=== PATIENT | male | born 1960 | race Caucasian/White ===

== ENCOUNTER 2017-04-07 20:33 | Inpatient (IN) | payer BC ==
[2017-04-07] MEDS ORDERED: NS 0.9% 1000 ML* 1,000 ML IV ONE (21:00)
[2017-04-07] MEDS ORDERED: Morphine INJ* 4 MG/ML 1 ML CARPUJECT IV ONE (21:00)
[2017-04-07 21:31] LABS: Hematocrit 41 % (42-52); Hemoglobin 13.6 g/dl (14.0-18.0); Mean Corpuscular HGB Conc 34 g/dl (31-36); Mean Corpuscular Hemoglobin 30 pg (27-31); Mean Corpuscular Volume 90 fL (80-94); Mean Platelet Volume 8 um3 (7.4-10.4); Red Blood Count 4.51 10^6/ul (4.0-5.4); Red Cell Distribution Width 15 % (10.5-15); White Blood Count 15.3 10^3/ul (3.5-10.8)
[2017-04-07 21:34] LABS: Add Diff/Slide Review? Slide Review Added; Comments Flag Yes
[2017-04-07] MEDS ORDERED: Ondansetron INJ* 2 MG/ML VIAL IV ONE (21:42)
[2017-04-07 21:45] LABS: Albumin 3.6 g/dL (3.2-5.2); BUN/Creatinine Ratio 11.4 (8-20); C Reactive Protein 324.19 mg/L (< 5.00); Calcium 8.8 mg/dL (8.6-10.3); EGFR Non-African American 73.1 (>60); Globulin 3.3 g/dL (2-4); Magnesium 2.2 mg/dL (1.9-2.7); Potassium 4.1 mmol/L (3.5-5.0); Total Bilirubin 1.2 mg/dL (0.2-1.0); Total Protein 6.9 g/dL (6.4-8.9)
[2017-04-07 21:47] LABS: Troponin I 0.03 ng/mL (<0.04)
[2017-04-07] MEDS ORDERED: Metoclopramide IV* 5 MG/ML 2 ML VIAL IV ONE (22:55)
[2017-04-07] MEDS ORDERED: Metoclopramide IV* 5 MG/ML 2 ML VIAL ONE (22:58)
[2017-04-07] MEDS ORDERED: Iohexol 300* (CONTRAST) 10 ML SDV IV ONE (23:03)
[2017-04-08] MEDS ORDERED: Morphine INJ* 4 MG/ML 1 ML CARPUJECT IV ONE (02:06)
[2017-04-08] MEDS ORDERED: Morphine INJ* 4 MG/ML 1 ML CARPUJECT ONE (02:07)
--- NOTE | 2017-04-08 03:05 | ED ---
Bogdan Winston Benjamin, scribed for Jonas Romero MD on 04/07/17 at 2103 . Abdominal Pain/Male - HPI Summary HPI Summary[facility] 56[facility]. Pt states his pain is constant. Pt vomited once at [facility]. No BM and unable to pass gas since last Friday. Pt is a smoker and a daily alcohol drinker. Hx of umbilical hernia, and sleep apnea. Denies CAD or COPD. Hx of gall bladder dz, but gall bladder still intact. - History of Current Complaint Chief Complaint: EDAbdPain Stated Complaint: ABD PAIN Hx Obtained From: Patient, Family/Cod Clerk - Onset/Duration: Gradual Onset, Lasting Days - since last Friday, Still Present Timing: Constant Severity Initially: Mild Severity Currently: Mild Pain Intensity: 5 Pain Scale Used: 0-10 Numeric Location: Diffuse Radiates: No Aggravating Factor(s): Nothing Alleviating Factor(s): Nothing Associated Signs And Symptoms: Positive: Nausea, Vomiting - x1, Other - unable to pass gas. Negative: Diarrhea - Allergies/Home Medications Allergies/Adverse Reactions: Allergies Allergy/AdvReac Type Severity Reaction Status Date / Time No Known Allergies Allergy Verified 04/07/17 20:38 Home Medications: Home Medications Lisinopril TAB* [Prinivil TAB*] 20 mg PO DAILY 04/07/17 [History Confirmed 04/07] Metformin HCl [Glucophage] 250 mg PO QAM 04/07/17 [History Confirmed 04/07/17] Naproxen [Naproxen 500 mg] 500 mg PO Q8H PRN 04/07/17 [History Confirmed ] [place]-3 Fatty Acids [Fish Oil] 1,200 mg PO BID 04/07/17 [History Confirmed 04/07] Omeprazole CAP* [Prilosec CAP* 20 MG] 20 mg PO BEDTIME 04/07/17 [History Confirmed 04/07/17] Tofacitinib Citrate [Xeljanz] 5 mg PO BID 04/07/17 [History Confirmed 04/07/17] predniSONE TAB* [Deltasone TAB*] 10 mg PO QAM 04/07/17 [History Confirmed ] PMH/Surg Hx/FS Hx/Imm Hx Infectious Disease History: No Infectious Disease History: Denies: Traveled Outside the [place] in Last 30 Days - Family History Known Family History: Positive: Hypertension Negative: Cardiac Disease - Social History Occupation: Employed Full-time Lives: With Family Alcohol Use: Daily Hx Substance Use: No Substance Use Type: Reports: None Smoking Status (MU): Light Every Day Tobacco Smoker Review of Systems Constitutional: Negative Eyes: Negative ENT: Negative Cardiovascular: Negative Respiratory: Negative Positive: Abdominal Pain, Vomiting, Nausea. Negative: Diarrhea Genitourinary: Negative Positive: no symptoms reported Musculoskeletal: Negative Skin: Negative Neurological: Negative Psychological: Normal All Other Systems Reviewed And Are Negative: Yes Physical Exam - Summary Physical Exam Summary: Appearance: Well-appearing, Well-nourished. somnolent but arousal and able to answer Skin: Warm Eyes: Normal ENT: Normal Neck: Supple, nontender Respiratory: Clear to auscultation Cardiovascular: Normal Abdomen: small da-umbilical hernia, soft and reducible, non tender. Mild Tender to Palpation in bilateral LQ. Diminished Bowel sounds. Musculoskeletal: Normal, Strength/ROM Intact. Distal pulses intact bilaterally. Neurological: Normal, A&Ox3 Psychiatric: Normal Triage Information Reviewed: Yes Vital Signs On Initial Exam: Initial Vitals Temp Pulse Resp BP Pulse Ox 94.6 F 111 24 121/86 94 04/07/17 20:36 04/07/17 20:36 04/07/17 20:36 04/07/17 20:36 04/07/17 20:36 Vital Signs Reviewed: Yes Diagnostics - Vital Signs Vital Signs Temp Pulse Resp BP Pulse Ox 04/07/17 20:54 100.3 F 04/07/17 20:36 94.6 F 111 24 121/86 94 - Laboratory Lab Results: Lab Results 04/07/17 04/07/17 04/07/17 Range/Units 21:19 21:19 21:19 WBC 15.3 H (3.5-10.8) 10^3/ul RBC 4.51 (4.0-5.4) 10^6/ul Hgb 13.6 L (14.0-18.0) g/dl Hct 41 L (42-52) % MCV 90 (80-94) fL MCH 30 (27-31) pg MCHC 34 (31-36) g/dl RDW 15 (10.5-15) % Plt Count 253 (150-450) 10^3/ul MPV 8 (7.4-10.4) um3 Neut % (Auto) 81.9 (38-83) % Lymph % (Auto) 5.0 L (25-47) % [place] % (Auto) 11.4 H (1-9) % Eos % (Auto) 1.1 (0-6) % Baso % (Auto) 0.6 (0-2) % Absolute Neuts (auto) 12.5 H (1.5-7.7) 10^3/ul Absolute Lymphs (auto) 0.8 L (1.0-4.8) 10^3/ul Absolute Monos (auto) 1.7 H (0-0.8) 10^3/ul Absolute Eos (auto) 0.2 (0-0.6) 10^3/ul Absolute Basos (auto) 0.1 (0-0.2) 10^3/ul Absolute Nucleated RBC 0.01 10^3/ul Nucleated RBC % 0 INR (Anticoag Therapy) 1.00 (0.77-1.02) APTT 24.8 L (26.0-36.3) seconds Sodium 133 (133-145) mmol/L Potassium 4.1 (3.5-5.0) mmol/L Chloride 99 L (101-111) mmol/L Carbon Dioxide 27 (22-32) mmol/L Anion Gap 7 (2-11) mmol/L BUN 12 (6-24) mg/dL Creatinine 1.05 (0.67-1.17) mg/dL Est GFR ( Amer) 94.0 (>60) Est GFR (Non-Af Amer) 73.1 (>60) BUN/Creatinine Ratio 11.4 (8-20) Glucose 137 H (70-100) mg/dL Lactic Acid (0.5-2.0) mmol/L Calcium 8.8 (8.6-10.3) mg/dL Magnesium 2.2 (1.9-2.7) mg/dL Total Bilirubin 1.20 H (0.2-1.0) mg/dL AST 16 (13-39) U/L ALT 26 (7-52) U/L Alkaline Phosphatase 63 (34-104) U/L Troponin I 0.03 (<0.04) ng/mL C-Reactive Protein 324.19 H (< 5.00) mg/L Total Protein 6.9 (6.4-8.9) g/dL Albumin 3.6 (3.2-5.2) g/dL Globulin 3.3 (2-4) g/dL Albumin/Globulin Ratio 1.1 (1-3) Lipase 18 (11.0-82.0) U/L 04/07/17 Range/Units 21:19 WBC (3.5-10.8) 10^3/ul RBC (4.0-5.4) 10^6/ul Hgb (14.0-18.0) g/dl Hct (42-52) % MCV (80-94) fL MCH (27-31) pg MCHC (31-36) g/dl RDW (10.5-15) % Plt Count (150-450) 10^3/ul MPV (7.4-10.4) um3 Neut % (Auto) (38-83) % Lymph % (Auto) (25-47) % [place] % (Auto) (1-9) % Eos % (Auto) (0-6) % Baso % (Auto) (0-2) % Absolute Neuts (auto) (1.5-7.7) 10^3/ul Absolute Lymphs (auto) (1.0-4.8) 10^3/ul Absolute Monos (auto) (0-0.8) 10^3/ul Absolute Eos (auto) (0-0.6) 10^3/ul Absolute Basos (auto) (0-0.2) 10^3/ul Absolute Nucleated RBC 10^3/ul Nucleated RBC % INR (Anticoag Therapy) (0.77-1.02) APTT (26.0-36.3) seconds Sodium (133-145) mmol/L Potassium (3.5-5.0) mmol/L Chloride (101-111) mmol/L Carbon Dioxide (22-32) mmol/L Anion Gap (2-11) mmol/L BUN (6-24) mg/dL Creatinine (0.67-1.17) mg/dL Est GFR ( Amer) (>60) Est GFR (Non-Af Amer) (>60) BUN/Creatinine Ratio (8-20) Glucose (70-100) mg/dL Lactic Acid 0.8 (0.5-2.0) mmol/L Calcium (8.6-10.3) mg/dL Magnesium (1.9-2.7) mg/dL Total Bilirubin (0.2-1.0) mg/dL AST (13-39) U/L ALT (7-52) U/L Alkaline Phosphatase (34-104) U/L Troponin I (<0.04) ng/mL C-Reactive Protein (< 5.00) mg/L Total Protein (6.4-8.9) g/dL Albumin (3.2-5.2) g/dL Globulin (2-4) g/dL Albumin/Globulin Ratio (1-3) Lipase (11.0-82.0) U/L Result Diagrams: 04/07/17 21:19 04/07/17 21:19 Lab Statement: Any lab studies that have been ordered have been reviewed, and results considered in the medical decision making process. - CT CT A/P CT Interpretation: Positive (See Comments) - suspected cholecystitis. CT Interpretation Completed By: Radiologist - ED physician has reviewed this radiology report and agrees. - EKG 2110. Cardiac Rate: NL EKG Rhythm: Sinus Rhythm - 81bpm Re-Evaluation - Re-Evaluation First Eval Change: Improved - feels slightly better after medications Abdominal Pain Fem Course/Dx - Course Course Of Treatment: Consulted Dr. Mcgrath (surgery) at 0235 hour, who wanted to reeval patietn in the AM with ultrasound when available. admitted for further eval - Diagnoses Provider Diagnoses: Biliary colic - Provider Notifications Discussed Care Of Patient With: Spencer Mcgrath Time Discussed With Above Provider: 02:58 Instructed by Provider To: Admit As Observation Discharge - Discharge Plan Condition: Improved Disposition: ADMITTED TO [facility] Referrals: Tulio Crisostomo MD,Jluis Stuart [Primary Care Provider] - The documentation as recorded by the Bogdan campbell Benjamin accurately reflects the service I personally performed and the decisions made by me, Jonas Romero MD.
[2017-04-08] MEDS ORDERED: fentaNYL* 50 MCG/ML 2 ML VIAL (100 MCG VIAL) IV SLOW PU PRN (03:33)
[2017-04-08] MEDS ORDERED: Acetaminophen TAB* 325 MG PO PRN (03:33)
[2017-04-08] MEDS ORDERED: Nicotine Inhaler* 10 MG AMP INH PRN (03:33)
[2017-04-08] MEDS ORDERED: CMCS: Melatonin (NF) 3 MG TAB PO PRN (03:33)
[2017-04-08] MEDS ORDERED: Albuterol 2.5 MG/3 ML NEB.SOL* (0.083%) INH PRN (03:33)
[2017-04-08] MEDS ORDERED: Ondansetron INJ* 2 MG/ML VIAL IV PRN (03:38)
[2017-04-08] MEDS ORDERED: NS 0.9% 1000 ML* 1,000 ML IV SCH (03:45)
[2017-04-08] MEDS ORDERED: Zosyn per Pharmacy* NOTE FOLLOW UP PRN (04:34)
[2017-04-08] MEDS ORDERED: Piperacillin/Tazobac ADVAN(*) 3.375 GM in D5W 100 ML BAG* 100 ML IVPB ONE (05:00)
[2017-04-08] MEDS ORDERED: Mouth Piece, Nicotine* 1 EACH CARTRIDGE INH ONE (05:00)
[2017-04-08 05:09] LABS: Hematocrit 40 % (42-52); Mean Corpuscular HGB Conc 33 g/dl (31-36); Mean Corpuscular Hemoglobin 30 pg (27-31); Mean Corpuscular Volume 91 fL (80-94); Mean Platelet Volume 9 um3 (7.4-10.4); Red Blood Count 4.35 10^6/ul (4.0-5.4); Red Cell Distribution Width 14 % (10.5-15)
[2017-04-08 05:10] LABS: Add Diff/Slide Review? Slide Review Added; Comments Flag Yes
[2017-04-08 05:19] LABS: EGFR African American 100.6 (>60); EGFR Non-African American 78.2 (>60)
--- NOTE | 2017-04-08 05:52 | HP ---
H&P (Free Text) History and Physical: PCP: Dasiha Antunez MD Date/Time: 04/08/2017 0330 CC: abdominal pain HPI: Mr Ayers is a 56YO male HX morbid obesity, choledocholithiasis s/p ERCP reports onset Friday of dull cramping diffuse abdominal pain associated with subjective F/C & nausea without vomiting, but no chest pain, SOB, palpitations, or other issues. His last BM was Friday described as loose, but without bloody or black aspect. He is unaware of exacerbating or alleviating factors. He reports similar pain in August of this year when he was found to have choledocholithiasis and underwent ERCP at [facility]. Today the pain became severe prompting him to present to [place] ED where his weight exceeded their CT limitation and so transfer was arranged. PMedHx rheumatoid arthritis on tofacitinib records list DM2, but he states he is NOT diabetic but on metformin 2nd chronic steroids for RA HTN cholelithiasis w/ choledocholithiasis s/p ERCP 08/[address] [facility] chronic LBP GERD umbilical hernia B inguinal hernia Ambulatory Orders Lisinopril TAB* [Prinivil TAB*] 20 mg PO DAILY 04/07/17 Metformin HCl [Glucophage] 250 mg PO QAM 04/07/17 Naproxen [Naproxen 500 mg] 500 mg PO Q8H PRN 04/07/17 [place]-3 Fatty Acids [Fish Oil] 1,200 mg PO BID 04/07/17 Omeprazole CAP* [Prilosec CAP* 20 MG] 20 mg PO BEDTIME 04/07/17 Tofacitinib Citrate [Xeljanz] 5 mg PO BID 04/07/17 predniSONE TAB* [Deltasone TAB*] 10 mg PO QAM 04/07/17 Allergies No Known Allergies Allergy (Verified 04/07/17 20:38) PSurgHx appendectomy ORIF B ankle FX ERCP 08/2016 SocHx: 1PPD cigarettes, occasional alcohol, denies recreational drugs; lives with his ; 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 [employer]; full code status FamHx: Mother: in her 60s 2nd uncertain type cancer; Father: in his 60s 2nd uncertain type cancer; sisters x2: healthy; Brother 1: in his 50s 2nd "tumor in brain"; Brother 2: healthy ROS: as above, otherwise reviewed and all were negative vitals: Vital Signs Temp 37.9 C 04/07/17 20:54 Pulse 68 04/08/17 04:00 Resp 20 04/08/17 02:12 BP 138/80 04/08/17 04:00 Pulse Ox 96 04/08/17 04:00 Intake & Output 04/07/17 04/07/17 04/08/17 11:59 23:59 11:59 Intake Total 1000 Balance 1000 Weight 176.447 kg Intake: IV Fluids 1000 Constitutional: NAD, normally developed, morbidly obese white male HEENM: atraumatic; sclera/conjunctiva: anicteric/clear; hearing: clinically mildly decreased; oropharynx: clear, mucosa moist Neck: soft tissue: non-tender; thyroid: normal Pulmonary: clear to auscultation bilaterally, good aeration, no accessory muscle use CV: RR/RR, normal S1S2, no carotid bruit, no jugular venous distention, 2+ B DP/ PT, no edema Abdominal: soft, non-distended, moderate RUQ tenderness, no rebound/guarding/ rigidity, normoactive bowel sounds, no hepatosplenomegaly or masses, no costovertebral angle tenderness Musculoskeletal: general: grossly intact, no palpable tenderness Integumental: normal appearance and texture of exposed skin Psychiatric orientation: AA&O to PPS affect: calm mood: cooperative eye contact: fair content: reliable responses: timely insight: fair Testing: Lab Results 04/07/17 04/07/17 04/07/17 Range/Units 21:19 21:19 21:19 WBC 15.3 H (3.5-10.8) 10^3/ul RBC 4.51 (4.0-5.4) 10^6/ul Hgb 13.6 L (14.0-18.0) g/dl Hct 41 L (42-52) % MCV 90 (80-94) fL MCH 30 (27-31) pg MCHC 34 (31-36) g/dl RDW 15 (10.5-15) % Plt Count 253 (150-450) 10^3/ul MPV 8 (7.4-10.4) um3 Neut % (Auto) 81.9 (38-83) % Lymph % (Auto) 5.0 L (25-47) % [place] % (Auto) 11.4 H (1-9) % Eos % (Auto) 1.1 (0-6) % Baso % (Auto) 0.6 (0-2) % Absolute Neuts (auto) 12.5 H (1.5-7.7) 10^3/ul Absolute Lymphs (auto) 0.8 L (1.0-4.8) 10^3/ul Absolute Monos (auto) 1.7 H (0-0.8) 10^3/ul Absolute Eos (auto) 0.2 (0-0.6) 10^3/ul Absolute Basos (auto) 0.1 (0-0.2) 10^3/ul Absolute Nucleated RBC 0.01 10^3/ul Nucleated RBC % 0 INR (Anticoag Therapy) 1.00 (0.77-1.02) APTT 24.8 L (26.0-36.3) seconds Sodium 133 (133-145) mmol/L Potassium 4.1 (3.5-5.0) mmol/L Chloride 99 L (101-111) mmol/L Carbon Dioxide 27 (22-32) mmol/L Anion Gap 7 (2-11) mmol/L BUN 12 (6-24) mg/dL Creatinine 1.05 (0.67-1.17) mg/dL Est GFR ( Amer) 94.0 (>60) Est GFR (Non-Af Amer) 73.1 (>60) BUN/Creatinine Ratio 11.4 (8-20) Glucose 137 H (70-100) mg/dL Lactic Acid (0.5-2.0) mmol/L Calcium 8.8 (8.6-10.3) mg/dL Magnesium 2.2 (1.9-2.7) mg/dL Total Bilirubin 1.20 H (0.2-1.0) mg/dL AST 16 (13-39) U/L ALT 26 (7-52) U/L Alkaline Phosphatase 63 (34-104) U/L Troponin I 0.03 (<0.04) ng/mL C-Reactive Protein 324.19 H (< 5.00) mg/L Total Protein 6.9 (6.4-8.9) g/dL Albumin 3.6 (3.2-5.2) g/dL Globulin 3.3 (2-4) g/dL Albumin/Globulin Ratio 1.1 (1-3) Lipase 18 (11.0-82.0) U/L 04/07/17 04/08/17 04/08/17 Range/Units 21:19 04:13 04:13 WBC (3.5-10.8) 10^3/ul RBC (4.0-5.4) 10^6/ul Hgb (14.0-18.0) g/dl Hct (42-52) % MCV (80-94) fL MCH (27-31) pg MCHC (31-36) g/dl RDW (10.5-15) % Plt Count (150-450) 10^3/ul MPV (7.4-10.4) um3 Neut % (Auto) (38-83) % Lymph % (Auto) (25-47) % [place] % (Auto) (1-9) % Eos % (Auto) (0-6) % Baso % (Auto) (0-2) % Absolute Neuts (auto) (1.5-7.7) 10^3/ul Absolute Lymphs (auto) (1.0-4.8) 10^3/ul Absolute Monos (auto) (0-0.8) 10^3/ul Absolute Eos (auto) (0-0.6) 10^3/ul Absolute Basos (auto) (0-0.2) 10^3/ul Absolute Nucleated RBC 10^3/ul Nucleated RBC % INR (Anticoag Therapy) 0.99 (0.77-1.02) APTT 25.4 L (26.0-36.3) seconds Sodium (133-145) mmol/L Potassium (3.5-5.0) mmol/L Chloride (101-111) mmol/L Carbon Dioxide (22-32) mmol/L Anion Gap (2-11) mmol/L BUN 14 (6-24) mg/dL Creatinine 0.99 (0.67-1.17) mg/dL Est GFR ( Amer) 100.6 (>60) Est GFR (Non-Af Amer) 78.2 (>60) BUN/Creatinine Ratio (8-20) Glucose (70-100) mg/dL Lactic Acid 0.8 (0.5-2.0) mmol/L Calcium (8.6-10.3) mg/dL Magnesium (1.9-2.7) mg/dL Total Bilirubin (0.2-1.0) mg/dL AST (13-39) U/L ALT (7-52) U/L Alkaline Phosphatase (34-104) U/L Troponin I (<0.04) ng/mL C-Reactive Protein (< 5.00) mg/L Total Protein (6.4-8.9) g/dL Albumin (3.2-5.2) g/dL Globulin (2-4) g/dL Albumin/Globulin Ratio (1-3) Lipase (11.0-82.0) U/L 04/08/17 Range/Units 04:13 WBC 13.0 H (3.5-10.8) 10^3/ul RBC 4.35 (4.0-5.4) 10^6/ul Hgb 13.0 L (14.0-18.0) g/dl Hct 40 L (42-52) % MCV 91 (80-94) fL MCH 30 (27-31) pg MCHC 33 (31-36) g/dl RDW 14 (10.5-15) % Plt Count 248 (150-450) 10^3/ul MPV 9 (7.4-10.4) um3 Neut % (Auto) 79.1 (38-83) % Lymph % (Auto) 7.1 L (25-47) % [place] % (Auto) 11.1 H (1-9) % Eos % (Auto) 1.6 (0-6) % Baso % (Auto) 1.1 (0-2) % Absolute Neuts (auto) 10.3 H (1.5-7.7) 10^3/ul Absolute Lymphs (auto) 0.9 L (1.0-4.8) 10^3/ul Absolute Monos (auto) 1.4 H (0-0.8) 10^3/ul Absolute Eos (auto) 0.2 (0-0.6) 10^3/ul Absolute Basos (auto) 0.1 (0-0.2) 10^3/ul Absolute Nucleated RBC 0.01 10^3/ul Nucleated RBC % 0.1 INR (Anticoag Therapy) (0.77-1.02) APTT (26.0-36.3) seconds Sodium (133-145) mmol/L Potassium (3.5-5.0) mmol/L Chloride (101-111) mmol/L Carbon Dioxide (22-32) mmol/L Anion Gap (2-11) mmol/L BUN (6-24) mg/dL Creatinine (0.67-1.17) mg/dL Est GFR ( Amer) (>60) Est GFR (Non-Af Amer) (>60) BUN/Creatinine Ratio (8-20) Glucose (70-100) mg/dL Lactic Acid (0.5-2.0) mmol/L Calcium (8.6-10.3) mg/dL Magnesium (1.9-2.7) mg/dL Total Bilirubin (0.2-1.0) mg/dL AST (13-39) U/L ALT (7-52) U/L Alkaline Phosphatase (34-104) U/L Troponin I (<0.04) ng/mL C-Reactive Protein (< 5.00) mg/L Total Protein (6.4-8.9) g/dL Albumin (3.2-5.2) g/dL Globulin (2-4) g/dL Albumin/Globulin Ratio (1-3) Lipase (11.0-82.0) U/L ECG, personally reviewed: sinus RBBB rate 93, no ischemia CT abd/pel W, personally reviewed: IMPRESSION: Suspected cholecystitis can be further evaluated with ultrasound. Large fat-containing umbilical hernia, moderate left-sided and small right-sided fat containing inguinal hernias. Impression: 56M HX rheumatoid arthritis on tofacitinib presents with acute cholecystitis DIAGNOSIS & PLAN Primary acute cholecystitis : pain control : IV piperacillin/tazobactam : hold tofacitinib & prednisone : monitor for s/s adrenal insufficiency : NPO x/ meds with sip of water : patient expresses uncertainty of willingness to undergo surgery during this hospitalization, needs further discussion : IVFs : Narayan Mcgrath MD surgery consulted by ED, will evaluate in AM : obtain ERCP records from [facility] : supportive care Secondary rheumatoid arthritis : hold tofacitinib & prednisone as above records list DM2, but he states he is NOT diabetic but on metformin 2nd chronic steroids for RA : check A1c HTN : continue lisinopril GERD : continue omeprazole umbilical hernia B inguinal hernia : no acute issues, surgery consulted as above Admission Rational: inpatient for acute cholecystitis requiring ABX & IVFs, likely surgical management DVTp: heparin SQ & SCDs Code Status: full HCP:
[2017-04-08] MEDS ORDERED: Omeprazole CAP* 20 MG PO SCH (06:00)
[2017-04-08 07:51] LABS: Hematocrit 37 % (42-52); Hemoglobin 12.4 g/dl (14.0-18.0); Mean Corpuscular HGB Conc 33 g/dl (31-36); Mean Corpuscular Hemoglobin 30 pg (27-31); Mean Corpuscular Volume 91 fL (80-94); Mean Platelet Volume 8 um3 (7.4-10.4); Red Blood Count 4.11 10^6/ul (4.0-5.4); Red Cell Distribution Width 14 % (10.5-15); White Blood Count 11.1 10^3/ul (3.5-10.8)
[2017-04-08 08:03] LABS: Albumin 3.3 g/dL (3.2-5.2); BUN/Creatinine Ratio 14.4 (8-20); Calcium 8.7 mg/dL (8.6-10.3); Direct Bilirubin 0.4 mg/dL (0.03-0.18); EGFR Non-African American 80.1 (>60); Globulin 3.1 g/dL (2-4); Indirect Bilirubin 0.7 mg/dL (0.3-1.0); Total Bilirubin 1.1 mg/dL (0.2-1.0); Total Protein 6.4 g/dL (6.4-8.9)
--- NOTE | 2017-04-08 08:06 | RAD ---
CLINICAL HISTORY: Abdominal pain COMPARISON: None TECHNIQUE: Multiple contiguous axial CT scans were obtained of the abdomen and pelvis after the administration of intravenous contrast. Coronal and sagittal multiplanar reformations are submitted for review. Oral contrast was administered. Delayed images were obtained through the abdomen and pelvis. FINDINGS: LUNG BASES: The lung bases are clear. LIVER: The liver is diffusely low in attenuation compared to the spleen. There are no focal hepatic parenchymal masses. BILE DUCTS: There is no intrahepatic or extrahepatic biliary dilatation. GALLBLADDER: There is stranding of the pericholecystic fat. There is mild enhancement of the gallbladder wall PANCREAS: The pancreas is normal, without mass or ductal dilatation. SPLEEN: Normal in size and appearance. UPPER GI TRACT: Evaluation of the gastrointestinal tract is limited by incomplete gastric distention. The upper GI tract is unremarkable. SMALL BOWEL AND MESENTERY: The small bowel is normal in contour, course, and caliber. There is no obstruction or dilatation. COLON: The colon is normal in contour, course, caliber. There is no pericolonic inflammatory change. ADRENALS: Normal bilaterally. KIDNEYS: The kidneys are normal in shape, size, contour, and axis. There is no hydronephrosis or nephrolithiasis. BLADDER: The bladder is smooth in contour. PELVIC ORGANS: The prostate gland is normal. The seminal vesicles are symmetric. AORTA: The aorta is normal. IVC: Unremarkable LYMPH NODES: There is no lymphadenopathy by size criteria. ABDOMINAL WALL: There is a large fat-containing umbilical hernia. There are bilateral fat-containing inguinal hernias. BONES AND SOFT TISSUES: Degenerative changes are noted most pronounced at L5-S1 OTHER: None IMPRESSION: 1. THERE IS PERICHOLECYSTIC INFLAMMATORY CHANGE SUGGESTIVE OF ACUTE CHOLECYSTITIS IN THE CORRECT CLINICAL SETTING. 2. LARGE FAT-CONTAINING UMBILICAL HERNIA WITH BILATERAL FAT-CONTAINING INGUINAL HERNIAS. 3. FATTY INFILTRATION OF THE LIVER.
[2017-04-08] MEDS ORDERED: Piperacillin/Tazobac ADVAN(*) 3.375 GM in D5W 100 ML BAG* 100 ML IVPB SCH (09:00)
--- NOTE | 2017-04-08 09:36 | RAD ---
INDICATION: ] Right upper quadrant pain COMPARISON: CT April 07, 2017 TECHNIQUE: Longitudinal and transverse scans of the right upper quadrant were obtained. Doppler interrogation of the hepatic and portal venous system was performed. The examination is limited due to body habitus. FINDINGS: Liver: There is hepatomegaly with hepatic steatosis. There are no masses . The liver measures 21.2 cm in cephalocaudal dimension. Vessels: There is normal hepatic and portal venous flow. Bile ducts: There is no evidence of intrahepatic or extrahepatic ductal dilatation. The common duct measures 0.4 cm. Gallbladder: The gallbladder wall appears thickened with a small amount of pericholecystic fluid. There are no definite gallstones but there are significant limitations on the ultrasound due to patient size. The CT shows gallbladder inflammation. Pancreas: The visualized pancreas appears normal Right kidney: The right kidney is normal in size and echogenicity. There are no masses or calculi. There is no evidence of hydronephrosis. The right kidney measures 11.5 x 5.3 x 5.7 cm. IVC and aorta: The aorta and superior vena cava appear normal. Fluid: There is no ascites. Other: None. IMPRESSION: LIMITED STUDY DUE TO PATIENT SIZE. SUSPECTED GALLBLADDER INFLAMMATION. HEPATOMEGALY WITH HEPATIC STEATOSIS.
[2017-04-08] MEDS: Docusate CAP* 100 MG PO SCH ×2 (09:56→20:23)
[2017-04-08] MEDS: Lisinopril TAB* 10 MG PO SCH (09:56)
[2017-04-08] MEDS: Hydrocortisone INJ* 100 MG VIAL IV SCH ×2 (09:57→17:39)
--- NOTE | 2017-04-08 11:19 | CONS ---
CC: [facility]; Dr. Jluis Antunez Jr. * SURGICAL CONSULTATION REPORT: DATE OF CONSULT: 04/08/17. HISTORY OF PRESENT ILLNESS: I was contacted by the emergency room physician in the overnight regarding Mr. Ayers a 56-year-old gentleman who presented to [place] emergency room and then was transferred to [facility] Emergency Room with complaints of diffuse abdominal pain. Plan was for a CT scanning and this was not available to Mr. Ayers at [facility] due to his weight of 389 pounds. He was noted on CT scan to have possibility of inflammation around the gallbladder, he had elevated white blood cell count, and I was contacted for evaluation. My recommendation at that time, given patient's history of symptomatic gallstones as well as choledocholithiasis requiring ERCP earlier this year led me to recommend admission to the hospitalist with followup services in the morning. The patient describes onset of pain on Friday after eating multiple bowels of chilli and drinking beer that he had prepared for watching football with his family members. This lead to no appetite, no flatus, and constipation along with bloating. The patient denied any previous similar symptoms stating that it was rare for him to not have flatus after eating chilly. Pain also did radiate to his back, it was relieved with rest, and he had minimal nausea with no vomiting, hoping that he would be able to vomit to make himself feel better, but this did not occur. This worsened into the following day when patient presented for evaluation. During all this time he had no appetite and did not eat. Denied any flatus or bowel movements during this time. He had only 2 episodes of a small amount of vomitus. The patient was admitted to the hospitalist service, maintained on n.p.o. status , and started on Zosyn. This morning patient feels much better, still has some abdominal discomfort, still has not passed flatus but he denies any nausea and vomiting and indeed has an appetite back. Patient wishes to go home. The patient describes a 2 week admission in August of this year through the [facility] system when patient was diagnosed with choledocholithiasis. He required ERCP and extraction of stone. These reports are not available to me. The patient slowly improved and was felt to have additional choledocholithiasis that passed on its own. He was seen by a surgeon who recommend laparoscopic cholecystectomy, but a trade marker felt the patient should hold off and lose weight first, patient preferred this and did not undergo surgery during that admission, and has rather been trying the diet over the course of the last 7 months. He has lost approximately 40 pounds during this time, watching what he eats. He has had no other symptoms, similar to that episodes in August until now and even this episode patient's pain was more diffuse than in the right upper quadrant, has it had been. PAST MEDICAL HISTORY: The patient has past medical history of rheumatoid arthritis, hypertension, lower back pain, gastroesophageal reflux disease, possible type 2 diabetes. PAST SURGICAL HISTORY: Open appendectomy as a 10-year-old, this was nonperforated. MEDICATIONS AT HOME: Include: 1. Lisinopril. 2. Metformin which he describes as protective because of his 10 mg of prednisone he has been taking daily for 3 years. 3. Omeprazole. 4. Xeljanz. 5. Naprosyn. ALLERGIES: He has no known drug allergies. SOCIAL HISTORY: He smokes almost a pack a day. He drinks alcohol. Denies any IV drugs. 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 REVIEW OF SYSTEMS: The patient has had chills, but no fevers, no appetite as described. Shortness of breath at baseline. Weight loss as described. No cerebrovascular disease. No dysuria. Constipation as described above. Poor exercise tolerance. No bleeding or clotting disorders. PHYSICAL EXAMINATION: The patient has been afebrile with a T-max of 100.3, currently 98.1. Heart rate on arrival was in the 100s, now it is in 80s consistently, with a blood pressure 130/80. He is alert and oriented x3. He is in no apparent distress. Sclerae anicteric. Mucous membranes are moist. Abdomen is soft, obese, minimally tender on deep palpation in the right and left upper quadrants. No CVA tenderness. Umbilical hernia, it appears reducible, but I did not reduce after reviewing the CAT scan, because this showed just omental fat, a well-healed Jonathan-Talib incision. No bilateral lower extremity swelling or edema. LABORATORY DATA: Patient's labs on presentation show white count of 15, it is now down to 11; H and H 12/37. Chemistry panel is within normal limits with bilirubin mildly elevated at 1.2 on arrival and now 1.1 with normal alk phos. He has had an elevated CRP of 324. Normal lipase. The patient's CAT scan was reviewed shows stool in the ascending colon, shows inflammatory changes of the gallbladder, normal caliber small bowel. The patient underwent a ultrasound which is a limited study, report was reviewed no gallstones were identified. No evidence of biliary ductal dilatation. The patient does have hepatomegaly. The gallbladder appeared possibly thickened with maybe a small amount of pericholecystic fluid, but again this was a poor study according to the radiologist's report. IMPRESSION: A 56-year-old gentleman with morbid obesity, on chronic steroids, who presents with 3 day history of diffuse abdominal pain that is now showing some improvement. Patient's differential includes cholecystitis versus choledocholithiasis and possible passed stone versus colitis. My recommendation at this time in a patient who is currently refusing any surgical intervention would be to continue on antibiotics. He is out of the 72-hour window of onset of symptoms, and he is feeling well with not a significant examination at this time. My recommendation is 10 days of antibiotics, restart diet, and discharge home. I would like to see him in 2 weeks in my office, at that time we will repeat the ultrasound, if at that time ultrasound shows gallstones, I would recommend laparoscopic cholecystectomy. I will continue to recommend weight loss, which patient has been doing, dieting. If there are no gall stones we may consider watchful waiting and no surgical intervention. We will follow patient if he is started on diet today and look towards discharge home later today if this improves. We will send him home on Augmentin 875 mg for 10 days. [id number]/[facility] #: [id number] [facility]
--- NOTE | 2017-04-08 14:58 | PN ---
Hospitalist Progress Note HOSPITALIST ADDENDUM Mr. Ayers is a 56yo M with PMH of morbid obesity with BMI 48, RA, HTN, possible type 2 DM, GERD, chronic back pain, episode of cholecystitis with choledocholithiasis requiring ERCP in 08/19, who presented to ED with c/o abdominal pain, N/V, admitted for another possible episode of cholecystitis. Surgery input appreciated. Initially plan was to d/c home today if patient tolerated diet, but after lunch he started to have abdominal pain and nausea again. We will continue current management with IVF and antibiotics.
[2017-04-08] MEDS: Morphine INJ* 4 MG/ML 1 ML CARPUJECT IV PRN ×2 (15:07→20:21)
[2017-04-08] MEDS: ZOSYN 3.375 GM Q8H per EXTENDED INFUSION IVPB SCH ×2 (17:43)
[2017-04-08] MEDS: Omeprazole CAP* 20 MG PO SCH (20:23)
[2017-04-09] MEDS: Hydrocortisone INJ* 100 MG VIAL IV SCH ×3 (01:00→18:10)
[2017-04-09] MEDS: ZOSYN 3.375 GM Q8H per EXTENDED INFUSION IVPB SCH ×4 (01:04→09:27)
[2017-04-09 03:41] LABS: Urine Bacteria Absent (Absent); Urine Bilirubin Negative (Negative); Urine Glucose 1+(50 mg/dL) (Negative); Urine Nitrite Negative (Negative)
[2017-04-09] MEDS: Heparin VIAL(*) 5000 UNITS/ML VIAL (FIVE THOUSAND) SUBCUT SCH ×3 (05:48→21:37)
[2017-04-09 08:06] LABS: Hematocrit 36 % (42-52); Mean Corpuscular HGB Conc 33 g/dl (31-36); Mean Corpuscular Hemoglobin 30 pg (27-31); Mean Corpuscular Volume 91 fL (80-94); Mean Platelet Volume 8 um3 (7.4-10.4); Red Blood Count 3.97 10^6/ul (4.0-5.4); Red Cell Distribution Width 14 % (10.5-15); White Blood Count 8.2 10^3/ul (3.5-10.8)
[2017-04-09 08:14] LABS: Albumin 3.2 g/dL (3.2-5.2); BUN/Creatinine Ratio 14.1 (8-20); C Reactive Protein 170.66 mg/L (< 5.00); Calcium 8.7 mg/dL (8.6-10.3); EGFR African American 109.1 (>60); EGFR Non-African American 84.8 (>60); Globulin 3.1 g/dL (2-4); Potassium 4.1 mmol/L (3.5-5.0); Total Bilirubin 3.6 mg/dL (0.2-1.0); Total Protein 6.3 g/dL (6.4-8.9)
[2017-04-09] MEDS: Docusate CAP* 100 MG PO SCH ×2 (09:26→21:36)
[2017-04-09] MEDS: Lisinopril TAB* 10 MG PO SCH (09:26)
[2017-04-09] MEDS ORDERED: Piperacillin/Tazobac ADVAN(*) 3.375 GM in D5W 100 ML BAG* 100 ML IVPB SCH (09:49)
--- NOTE | 2017-04-09 13:23 | PN ---
Subjective Date of Service: 04/09/17 Interval History: HOSPITALIST PROGRESS NOTE Patient seen and examined at bedside. He offers no new complaints at this time. Had abdominal discomfort and nausea after lunch yesterday, but feels better. Family History: Unchanged from Admission Social History: Unchanged from Admission Past Medical History: Unchanged from Admission Objective Active Medications: Acetaminophen (Tylenol Tab*) 650 mg PO Q6H PRN PRN Reason: FEVER/PAIN Albuterol (Ventolin 2.5 Mg/3 Ml Neb.Awa*) 2.5 mg INH Q2H PRN PRN Reason: SOB/WHEEZING Docusate Sodium (Colace Cap*) 200 mg PO BID [facility] Last Admin: 04/09/17 09:26 Dose: 200 mg Heparin Sodium (Porcine) (Heparin Vial(*)) 5,000 units SUBCUT Q8HR [facility] Last Admin: 04/09/17 05:48 Dose: 5,000 units Hydrocortisone Sodium Succinate (Solu-Cortef*) 50 mg IV Q8H [facility] Last Admin: 04/09/17 09:26 Dose: 50 mg Sodium Chloride (Ns 0.9% 1000 Ml*) 1,000 mls @ 125 mls/hr IV PER RATE [facility] Last Admin: 04/08/17 05:32 Dose: 125 mls/hr Piperacillin Sod/Tazobactam (Sod 3.375 gm/ Dextrose) 100 mls @ 25 mls/hr IVPB 0100,0900,1700 [facility] Lisinopril (Prinivil Tab*) 20 mg PO DAILY [facility] Last Admin: 04/09/17 09:26 Dose: 20 mg Melatonin (Melatonin (Nf)) 3 mg PO BEDTIME PRN; Protocol PRN Reason: Sleep Morphine Sulfate (Morphine Inj (Syringe)*) 4 mg IV Q4H PRN PRN Reason: PAIN Last Admin: 04/08/17 20:21 Dose: 4 mg Nicotine (Nicotine Inhaler*) 10 mg INH Q2H PRN PRN Reason: CRAVING Omeprazole (Prilosec Cap*) 20 mg PO BEDTIME [facility] Last Admin: 04/08/17 20:23 Dose: 20 mg Ondansetron HCl (Zofran Inj*) 4 mg IV Q6H PRN PRN Reason: NAUSEA Last Admin: 04/08/17 15:05 Dose: 4 mg Pharmacy Consult (Zosyn Per Pharmacy*) 1 note FOLLOW UP . PRN PRN Reason: PER PROTOCOL Vital Signs - 8 hr 04/09/17 12:04 Temperature 98.0 F Pulse Rate 60 Respiratory 20 Rate Blood Pressure 149/83 (mmHg) O2 Sat by Pulse 95 Oximetry Oxygen Devices in Use Now: None Appearance: Morbid obese male lying in bed in NAD. Eyes: No Scleral Icterus Ears/Nose/Mouth/Throat: Mucous Membranes Moist Neck: Trachea Midline Respiratory: Symmetrical Chest Expansion and Respiratory Effort, Clear to Auscultation Cardiovascular: RRR - Normal S1 and S2 Abdominal: NL Sounds; No Tenderness; No Distention - obese Neurological: Alert and Oriented x 3, NL Muscle Strength and Tone Result Diagrams: 04/09/17 07:41 04/09/17 07:41 Assess/Plan/Problems-Billing Assessment: Mr. Ayers is a 56yo M with PMH of morbid obesity with BMI 48, RA, HTN, possible type 2 DM, GERD, chronic back pain, episode of cholecystitis with choledocholithiasis requiring ERCP in 08/19, who presented to ED with c/o abdominal pain and nausea, now with LFT elevation suggestive of cholecystitis with choledocholithiasis. - Patient Problems (1) Sepsis Comment: - Patient met sepsis criteria on admission with tachycardia and leukocytosis. - Source is probable cholecystitis. (2) Cholecystitis with cholelithiasis Comment: - Patient had similar presentation in August, admitted to [place] and required ERCP. [place] to be high risk for lap sheldon and plan was for him to stop drinking/smoking, lose weight, so he would have a better risk profile before surgery. - His LFTs are trending up today, suggestive of cholelithiasis or passed stone - GI consult requested. If ERCP not possible here, patient would like to be transferred to [place]. - Awaiting Surgery follow up. - Continue Zosyn. (3) Rheumatoid arthritis Comment: - Xeljanz on hold in the setting of infection. - Continue stress dose steroids. (4) Hyperglycemia Comment: - Likely insulin resistance secondary to morbid obesity worsened by steroids. - A1c 6.3. (5) HTN (hypertension) Comment: - Continue Lisinopril. (6) DVT prophylaxis Comment: - SQ heparin. (7) Full code status Status and Disposition: Change to inpatient.
[2017-04-09] MEDS ORDERED: ZOSYN 3.375 GM Q8H per EXTENDED INFUSION IVPB ONE ×2 (17:00)
[2017-04-09] MEDS: Morphine INJ* 4 MG/ML 1 ML CARPUJECT IV PRN ×2 (18:07→22:43)
[2017-04-09] MEDS ORDERED: Piperacillin/Tazobac ADVAN(*) 3.375 GM in D5W 100 ML BAG* 100 ML IVPB ONE (18:26)
--- NOTE | 2017-04-09 19:06 | PN ---
Progress Note - Progress Note Date of Service: 04/09/17 SOAP: Subjective: Pt seen and examined. He just finished dinner including chicken. His upper abdominal pain is returning. Last 24 hrs noted. Positive BM No with elevated LFTs Objective: af vss abdo: soft/ obese/ tenber at mid abdomen, R > L, negative rudd's, no cva tenderness labs noted Assessment: Cholcystitis vs choledocholithiasis Plan: abx NPO labs in Am if LFTs are way up; ERCP with likely transfer; if still elevated, then MRCP first Will follow
--- NOTE | 2017-04-09 20:24 | CONS ---
GASTROENTEROLOGY CONSULTATION NOTE: DATE OF CONSULT: 04/09/17 HOSPITAL PROVIDER: Amanda Mccarty MD. PRIMARY CARE PHYSICIAN: Leslie Antunez MD REASON FOR CONSULT: Abdominal pain, elevated liver tests. HISTORY OF PRESENT ILLNESS: Mr. Ayers is a very pleasant 56-year-old gentleman with a past medical history of morbid obesity, rheumatoid arthritis on tofacitinib, and GERD, who presented as a transfer from [facility] with complaints of diffuse abdominal pain, in need of further CT imaging due to obesity. Patient states approximately 4 days ago he began to experience diffuse abdominal pain, which was associated with subjective fevers and chills. These symptoms began shortly after eating multiple bowls of chilli along with beer while watching football Friday night. He denies any nausea and vomiting , but did admit to bloating or gassy feeling. That same day, he experienced some lose episodes of soft brown stool as well. He denies melena or hematochezia. He does have a history of cholecystitis, cholelithiasis with choledocholithiasis back in August of 2016, which required an ERCP. Per patient' s recollection, he was noted to have multiple stones in his bile ducts and only one was able to be removed before the procedure was aborted due to respiratory distress. It was suggested to him at that time that he should have a laparoscopic cholecystectomy; however, his program professional and primary care physician were trying to optimize his medical condition by having him lose weight prior to elective surgery. Patient has lost approximately 40 pounds since then with diet modification. However, he has recently been gaining weight due to poor diet management. Patient states his current symptoms are very different from what he experienced back in August of 2016. During his hospital admission, patient began feeling better. Shortly after eating pot roast, he began to experience the same abdominal cramping he had prior to admission. He states his symptoms have improved since he was switched over to a low fat diet. He had a generous bowel movement this morning that was nonbloody. He states he feels better overall and wants to go home. His liver tests, however, did increase today including the alkaline phosphatase and AST, ALT for which Gastroenterology was consulted for further evaluation of these findings. PAST MEDICAL HISTORY: 1. Rheumatoid arthritis, on tofacitinib. 2. Elevated glucose due to chronic steroid use from rheumatoid arthritis. 3. History of cholelithiasis, cholecystitis with choledocholithiasis. 4. Hypertension. 5. GERD. 6. Chronic low back pain. 7. Umbilical hernia. 8. Bilateral inguinal hernia. PAST SURGICAL HISTORY: 1. Appendectomy. 2. ORIF of bilateral ankle fractures. 3. ERCP in August 2016. MEDICATIONS: Home medications: 1. Lisinopril. 2. Metformin HCl. 3. Naproxen. 4. Dexter-3 fatty acids. 5. Omeprazole. 6. Tofacitinib. 7. Prednisone. Hospital medications include: 1. Tylenol as needed. 2. Albuterol as needed. 3. Docusate twice daily. 4. Heparin. 5. Solu-Cortef. 6. Lisinopril. 7. Melatonin. 8. Morphine sulfate. 9. Nicotine. 10. Omeprazole. 11. Zofran as needed. 12. Zosyn. ALLERGIES: No known drug allergies. FAMILY HISTORY: Mother and father in their 60s secondary to carcinoma. SOCIAL HISTORY: One pack per day of cigarettes. Occasional alcohol use. Denies recreational drug use. Lives with his . REVIEW OF SYSTEMS: On a 14-point scale were reviewed. All pertinent positives and negatives were noted above in the HPI. PHYSICAL EXAM: Vital Signs: Temperature 97.8, pulse 76, respirations 18, oxygenation 96% on room air, blood pressure 146/82. Generally, the patient is alert and oriented x3, in no acute distress. Morbidly obese. HEENT: Normocephalic, atraumatic. Extraocular muscles are intact. Anicteric bilaterally. Moist mucous membranes. Neck is soft. Pulmonary: Clear to auscultation bilaterally. Cardiovascular Exam: Regular rate and rhythm. Abdominal Exam: Obese, soft, nontender, nondistended. Mild tenderness in the epigastric region. No rebound, guarding or rigidity. Positive bowel sounds present in all 4 quadrants. No hepatosplenomegaly. Musculoskeletal Exam: Grossly intact. Neurological Exam: No gross focal deficits. DIAGNOSTIC STUDIES/LAB DATA: WBC 8.2, hemoglobin 12.0, hematocrit 36.0, platelets 253. INR 0.99. PTT 25.4. Sodium 135, potassium 4.1, chloride 102, CO2 26, anion gap 7, BUN 13, creatinine 0.92. Total bilirubin 3.60, AST 215, ALT 151, alkaline phosphatase 245. Troponin 0.03, CRP 170.66. ASSESSMENT AND PLAN: Mr. Ayers is a very pleasant 57-year-old morbidly obese male with prior history of cholelithiasis, cholecystitis, and choledocholithiasis, who presented to [facility] with complaints of diffuse abdominal pain. A gallbladder ultrasound and CT of the abdomen and pelvis performed in the emergency room and was negative for biliary ductal dilatation/obstruction and large gallstones. At that time, the gallbladder did appear to be thickened with small amount of pericholecystic fluid on ultrasound. The CAT scan did confirm gallbladder inflammation consistent with cholecystitis. 1. Elevated liver function tests. May be secondary to cholecystitis versus choledocholithiasis. At this time, choledocholithiasis is less suspected without any evidence of intra and extrahepatic ductal dilatation seen both on ultrasound and CT imaging. Patient states he feels better after receiving a low fat diet. We would recommend rechecking liver enzymes in the morning if liver enzymes remain persistent or are elevated, would recommend based on his symptoms an MRCP versus ERCP for further evaluation and to rule out choledocholithiasis. Currently, the patient remains on Zosyn and is currently receiving a low fat diet and remains symptom-free. Surgery recs were noted and appreciated. We will continue to monitor the patient closely and provide further recommendations tomorrow morning. Case was discussed with the hospitalist team. Thank you Dr. Mccarty for allowing us to participate in the care of your patient. We will continue to follow your patient closely. If you should have any further questions or concerns, please do not hesitate to contact us. [id number]/[facility] #: [id number]
[2017-04-09] MEDS: Omeprazole CAP* 20 MG PO SCH (21:35)
[2017-04-10] MEDS ORDERED: Piperacillin/Tazobac ADVAN(*) 3.375 GM in D5W 100 ML BAG* 100 ML IVPB SCH (01:00)
[2017-04-10] MEDS: Hydrocortisone INJ* 100 MG VIAL IV SCH ×2 (01:46→09:19)
[2017-04-10] MEDS: Heparin VIAL(*) 5000 UNITS/ML VIAL (FIVE THOUSAND) SUBCUT SCH (05:58)
[2017-04-10 06:47] LABS: Hematocrit 36 % (42-52); Mean Corpuscular HGB Conc 34 g/dl (31-36); Mean Corpuscular Hemoglobin 30 pg (27-31); Mean Corpuscular Volume 91 fL (80-94); Mean Platelet Volume 8 um3 (7.4-10.4); Red Blood Count 3.96 10^6/ul (4.0-5.4); Red Cell Distribution Width 14 % (10.5-15); White Blood Count 8.1 10^3/ul (3.5-10.8)
[2017-04-10 07:00] LABS: Comments Flag Yes
[2017-04-10 07:01] LABS: Add Diff/Slide Review? Slide Review Added
[2017-04-10 07:05] LABS: Albumin 3.3 g/dL (3.2-5.2); BUN/Creatinine Ratio 17.8 (8-20); Calcium 8.8 mg/dL (8.6-10.3); EGFR African American 111.9 (>60); Globulin 3.2 g/dL (2-4); Potassium 4.2 mmol/L (3.5-5.0); Total Protein 6.5 g/dL (6.4-8.9)
[2017-04-10 07:35] VITALS: BP 164/92
[2017-04-10] MEDS ORDERED: Amoxicillin/Clavulanate TAB* 875 MG PO ONE (08:34)
[2017-04-10] MEDS: Docusate CAP* 100 MG PO SCH (09:19)
[2017-04-10] MEDS: Lisinopril TAB* 10 MG PO SCH (09:25)
--- NOTE | 2017-04-10 10:29 | PN ---
Progress Note - Progress Note Date of Service: 04/10/17 Note: Spoke w/ Mr. Ayers. He is apparently feeling much better this morning. His LFT are normalizing. He understands that Dr. Mcgrath would like to see him in ~ 1 week and was given our office contact info. He will call to make the appointment.
--- NOTE | 2017-04-11 11:33 | DS ---
CC: Dr. Jluis Antunez Jr.; Spencer Mcgrath MD DISCHARGE SUMMARY: DATE OF ADMISSION: 04/08/17 DATE OF DISCHARGE: 04/10/17 PRIMARY CARE PROVIDER: Ruth Cuellar Jr.. His phone number is . DISCHARGE DIAGNOSES: 1. Sepsis, present on admission. 2. Acute cholecystitis with possible choledocholithiasis and passage of a stone. 3. Leukocytosis. 4. Transaminitis. SECONDARY DIAGNOSES: 1. Morbid obesity with a BMI of 48.6. 2. Rheumatoid arthritis. 3. Glucose intolerance. 4. Gastroesophageal reflux disease. 5. Chronic back pain. 6. Episode of cholecystitis with choledocholithiasis requiring ERCP in August 2016. 7. Tobacco abuse. MEDICATION LIST: 1. Prednisone 10 mg p.o. daily. 2. Omeprazole 20 mg p.o. bedtime. 3. Naproxen 500 mg p.o. q.8 hours p.r.n. pain. 4. Metformin 250 mg p.o. q.a.m. 5. Fish oil 1200 mg p.o. b.i.d. 6. Lisinopril 20 mg p.o. daily. NEW MEDICATIONS: Augmentin 875 mg p.o. b.i.d. for 10 more days. Xeljanz is on hold for now until he completes the treatment for his infection. HOSPITAL COURSE: Mr. Ayers is a 57-year-old male with a past medical history as stated above that p resented to the emergency room on 04/07/17 with complaints of abdominal pain associated with subjecti ve fever, chills, and nausea. He had a similar episode in August and at that time, he required ERCP f or choledocholithiasis. At that time, the plan was for the patient to work on his risk factors inclu ding tobacco cessation, weight loss in preparation for an elective cholecystectomy, but unfortunately this did not happen. For more details about his presentation, I refer you to his history and physic al. The patient had a CT of the abdomen and pelvis. Initial pericholecystic inflammatory change suggesti ve of acute cholecystitis. Large fat containing umbilical hernia with bilateral fat containing ingui nal hernias and fatty infiltration of the liver. Gallbladder ultrasound: Limited study due to the p atient's size, suspected gallbladder inflammation, hepatomegaly with hepatic steatosis. The patient had a white cell count of 15,000 on admission and he was also found to be tachycardic, me eting sepsis criteria. Initially, his LFTs were close to normal limits with a total bilirubin of 1.2 , AST of 16, ALT of 26. The patient was seen in consultation by General Surgery (Dr. Mcgrath) and as h e had had significant symptomatic improvement, the plan was to start a diet and if the patient tolera rome well, to be discharged home and follow up with Dr. Mcgrath as outpatient to plan his cholecystectom y in the near future. Initially the patient did well with diet, but then he developed some mild abdo eliecer pain and nausea, so his discharge was held. The next day, his LFTs had increased with a total bilirubin of 3.6, AST of 215, ALT of 151, and a GI consultation was requested with Dr. Cramer. Her impression was that the increase in his LFTs could b e secondary to cholecystitis versus choledocholithiasis. She felt the choledocholithiasis was less s uspected because his imaging studies showed no evidence of intra and extrahepatic ductal dilatation. Her recommendation was to trend his LFTs and if they remained elevated, she would recommend MRCP vers us ERCP. The patient remained asymptomatic and repeat LFTs had trended down nicely with total biliru bin of 1, AST of 125, ALT of 179. At that point, the impression was that maybe the patient had passe d the stone or maybe he had some edema of his sphincter of Oddi causing the elevation of his LFTs. He was asymptomatic, able to tolerate a low-fat diet, and felt to be stable to be [facility] to follow up with Dr. Mcgrath next week. The patient will receive 10 more days of Augmentin and he was advised to not take his immunosuppressant (Xeljanz) until his treatment is finished. PHYSICAL EXAMINATION: Vital Signs: Temperature is 97.6, heart rate is 53, respiratory rate is 16, o xygen saturation 95% on room air, blood pressure is 154/92. General: The patient is a pleasant morb idly obese male, sitting up in bed, in no acute distress. CVS: Normal S1 and S2. Regular rate and rhythm. Chest: Breath sounds present bilaterally with no added sounds. Abdomen: Morbidly obese, so ft, nontender. Bowel sounds are present. Extremities: No edema. Neuro: He is alert and oriented x 3, able to move all 4 extremities. DIET: Low-fat consistent carb diet. ACTIVITY: As tolerated. DISPOSITION: To home. STATUS WHILE IN THE HOSPITAL: Inpatient. The patient received education regarding his diagnosis and the need for weight loss and to stop smoki ng, to try and decrease his surgical risk in preparation for his elective cholecystectomy. Please keep in mind this is a summarized version of this patient's hospital stay. If you need more in formation, please feel free to call me at [phone] or please obtain the full medical records. TIME SPENT: Approximately 45 minutes was spent to complete this discharge. [id number]/[facility] #: [id number]
== END 2017-04-10 10:20 | disposition home or self-care (01) | DRG 720 ==
LOC: ED 20:33 → SSU 04-08 03:32 → OBSVTOIN 04-10 07:18
PROVIDERS: ADMIT Hospitalist; ATTEND Internal Medicine
DX: A41.9 Sepsis, unspecified organism (principal); K80.42 Calculus of bile duct with acute cholecystitis without obstruction; E66.01 Morbid (severe) obesity due to excess calories; E11.65 Type 2 diabetes mellitus with hyperglycemia; K76.0 Fatty (change of) liver, not elsewhere classified; Z68.42 Body mass index [BMI] 45.0-49.9, adult; D72.829 Elevated white blood cell count, unspecified; G47.30 Sleep apnea, unspecified; M06.9 Rheumatoid arthritis, unspecified; I10 Essential (primary) hypertension; K21.9 Gastro-esophageal reflux disease without esophagitis; G89.29 Other chronic pain; M54.5 Low back pain; F17.210 Nicotine dependence, cigarettes, uncomplicated; K40.20 Bilateral inguinal hernia, without obstruction or gangrene, not specified as recurrent; E74.39 Other disorders of intestinal carbohydrate absorption; K42.9 Umbilical hernia without obstruction or gangrene; Z79.52 Long term (current) use of systemic steroids; Z80.9 Family history of malignant neoplasm, unspecified; Z79.84 Long term (current) use of oral hypoglycemic drugs; Z72.89 Other problems related to lifestyle
CPT/HCPCS: 36415; 74177; 76705; 80048; 80053; 80076; 81003; 81015; 82565; 83036; 83605; 83690; 83735; 84484; 84520; 85025; 85610; 85730; 86140; 93005; 94760; 99406; A9270-GY; G0378; J1644; J1720; J2270; J2405; J2543; J2765; Q9967